=== PATIENT | female | born 1935 | race Caucasian/White ===

== ENCOUNTER 2018-07-20 15:28 | Observation (INO) | payer OTHER ==
[~2018-07-20] VITALS: Ht 152.4 cm; Wt 54.0 kg
[~2018-07-20 15:28] MED LIST: COLACE100 MG PO; DIFLUCAN100 MG PO; DIFLUCAN200 MG PO; ESTRADIOL 1 MG T1 M1 VAG; GABAPENTIN 100100 MG PO; HOME MEDICATION PO; HYDROCORTISONE3011 TOP; LIDOCAINE 22 %/30 GM TOP; MACROBID 100 M100 M2; METFORMIN HCL500 MG PO; MIRALAX17 GM PO; ONDANSETRON HCL4 M2 IV; PERCOCET 5-3251 EACH PO; PHENAZOPYRIDIN200 M2 PO; TENORMIN50 MG PO; TOPROL XL50 MG PO; TRAMADOL 50 MG50 MG PO; VAN500AD IVPB; XANAX 0.5 MG0.5 MG PO
[2018-07-20 15:34] VITALS: BP 172/57
[2018-07-20] MEDS ORDERED: ALENDRONATE SOD70 MG PO (15:38)
[2018-07-20] MEDS ORDERED: SPIRONOLACTONE25 M1 PO (15:38)
[2018-07-20 16:04] LABS: ABSOLUTE BASOPHILS 0.1 thou/uL (0.0-0.2); ABSOLUTE LYMPHOCYTES 1.5 thou/uL (0.8-5.3); ABSOLUTE MONOCYTES 0.8 thou/uL (0.0-1.2); ABSOLUTE NEUTROPHILS 4.5 thou/uL (1.6-8.1); BASOPHILS 0.9 %; HEMATOCRIT 38.4 % (37.0-47.0); HEMOGLOBIN 12.6 gm/dL (12.0-15.0); LYMPHOCYTES 22.1 %; MCH 31.5 pg (26.0-34.0); MCHC 32.7 g/dL (28.0-37.0); MCV 96.4 fL (80.0-100.0); MONOCYTES 11.9 %; MPV 8.9 fl. (7.2-11.1); NUCLEATED RBCS 0 /100WBC; PLATELET COUNT* 261 thou/uL (150-400); POLYS 65.1 %; RBC 3.99 mil/uL (4.20-5.00); RDW-CV 14.6 % (10.5-14.5); WBC 6.9 thou/uL (4.0-11.0)
[2018-07-20 16:12] LABS: ANION GAP 1 mmol/L (7-16); BUN 21 mg/dL (7-18); CALCIUM 8.7 mg/dL (8.5-10.1); CHLORIDE 103 mmol/L (98-107); CO2 30 mmol/L (21-32); GLUCOSE 66 mg/dL (70-99); POTASSIUM 5.7 mmol/L (3.5-5.1); SODIUM 134 mmol/L (136-145)
[2018-07-20 16:23] LABS: ALBUMIN 3.6 g/dL (3.4-5.0); ALKALINE PHOSPHATASE 62 U/L (46-116); LIPASE 88 U/L (73-393); MAGNESIUM 1.8 mg/dL (1.8-2.4); NT-PRO BRAIN NAT PEPTIDE 1408 pg/mL (<300); SGOT 24 U/L (15-37); SGPT 15 U/L (30-65); TOTAL BILIRUBIN 0.3 mg/dL (<0.1-1.0); TOTAL PROTEIN 6.8 g/dL (6.4-8.2); TROPONIN-I LEVEL <0.06 ng/mL (<0.06)
--- NOTE | 2018-07-20 17:09 | NUR ---
MCKENZIE(VIVIAN) NOTIFIED UPON PT RETURN FROM CT 1658. MCKENZIE IN ROOM WITH PT CONNECTING TO MONITOR. PT CONNECTED TO 02
--- NOTE | 2018-07-20 17:10 | NUR ---
CHRISTY SCHMITT ODERED BY US FROM DIETARY
--- NOTE | 2018-07-20 17:15 | NUR ---
ER AT BEDSIDE DISCUSSING PLAN OF CARE WITH FAMILY AND PT.
[2018-07-20 19:26] LABS: BE -3.1 mmol/L (-2 to +3); HCO3 23.1 mmol/L (22.0-26.0); PCO2 45.6 mmHg (35.0-45.0); PO2 102.5 mmHg (75.0-100.0); pH 7.322 (7.340-7.450)
[2018-07-20 19:30] VITALS: BP 129/88
[2018-07-20 19:44] VITALS: BP 149/41
--- NOTE | 2018-07-20 20:19 | NUR ---
REPORT OBTAINED FROM MCKENZIE FROM ER, PT ARRIVED TO UNIT AT APPROX 1905, OBTAINED ADMISSION HX, REPORT GIVEN TO ALFREDITO SPRINGER. PT ORINETED TO ROOM AND STAFF. RESTING COMFORTABLY IN BED.
[2018-07-21] VITALS: BP 133/33
--- NOTE | 2018-07-21 00:53 | NUR ---
PT ARRIVED TO ROOM 223 AT AROUND 1930. ASSESSMENT COMPLETED CHARTED. ABLE TO MAKE NEEDS KNOWN, NO C/O PAIN OR DISCOMFORT. ON 2L O2 NC, BED ALARM ON, UP WITH SB WITH A CANE. CARDIOLOGY CONSULT THIS MORNING AND HAS BEEN NPO SINCE MIDNIGHT
[2018-07-21 04:00] VITALS: BP 165/55
[2018-07-21 05:22] LABS: HEMATOCRIT 34.7 % (37.0-47.0); HEMOGLOBIN 11.4 gm/dL (12.0-15.0); MCHC 32.9 g/dL (28.0-37.0); MCV 97.2 fL (80.0-100.0); RBC 3.57 mil/uL (4.20-5.00); RDW-CV 14.7 % (10.5-14.5); WBC 5.1 thou/uL (4.0-11.0)
[2018-07-21 05:28] LABS: CALCIUM 8.1 mg/dL (8.5-10.1); CREATININE 0.9 mg/dL (0.6-1.3); MAGNESIUM 1.8 mg/dL (1.8-2.4)
[2018-07-21 05:34] LABS: POTASSIUM 4.5 mmol/L (3.5-5.1)
[2018-07-21 09:17] VITALS: BP 165/56
[2018-07-21] MEDS ORDERED: ATENOLOL 50MG T50 M1 PO (09:28)
[2018-07-21 12:00] VITALS: BP 140/70
--- NOTE | 2018-07-21 12:49 | EKG ---
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 : 1935 Requested By: Paul Booker Order Number: [id number] MD: Dale Grove Measurements Intervals [place] Rate: 45 P: 22 VT: 143 QRS: 12 QRSD: 93 T: 46 QT: 470 QTc: 407 Interpretive Statements Sinus bradycardia Abnormal R-wave progression, late transition Minimal ST elevation, lateral leads Compared to ECG 02/24/2015 05:15:52 ST (T wave) deviation now present Sinus rhythm no longer present Electronically Signed On 07-21-2018 12:49:29 CDT by Dale Grove [email or web address] <ELECTRONICALLY SIGNED> By: Dale Grove MD, FACC 07/21/18 1249 1538 1538 Dale Grove MD, FACC /EPI
[2018-07-21] MEDS ORDERED: NORVASC5 MG PO (15:14)
[2018-07-21 15:25] VITALS: BP 148/76
--- NOTE | 2018-07-21 15:59 | NUR ---
ASSUMED CARE OF PT AT 07. MEDICATIONS ADMINISTERED PER NOV. PT A&O X4 CALM AND COOPERATIVE. PT HAS HAD NO C/O PAIN OR DISTRESS. PT VSS AND TRACING SB ON THE MONITOR. PT TO BE DISCHARGED HOME TODAY. AFTER BEING CLEARED BY CARDIOLOGY THIS NURSE CALLED DR BARRAGAN AND OBTAINED VERBAL DISCHARGE ORDERS.
--- NOTE | 2018-07-21 17:44 | NUR ---
PT DISCHARGED HOME WITH DAUGHTER. IV AND ACUTE CARE ASSISTANT REMOVED PRIOR TO DISCHARGE. PT AND DAUGHTER VERBALIZE UNDERSTANDING OF INSTRUCTIONS. ALL PAPERWORK TAKEN BY PT AT TIME OF DISCHARGE. NEW MEDICATIONS CALLED TO [facility].
--- NOTE | 2018-07-23 09:11 | CON ---
[address] [address] CONSULTATION Name: SUAD LANIER Room: [address] M.Mouna#: [id number] Admission: 07/20/18 Attend Phys: Galo العلي MD Discharge: 07/21/18 Date of : 37 Report #: [id number] THIS REPORT FOR: //name// CC: Stella العلي DATE OF SERVICE: 07/21/2018 REQUESTING PHYSICIAN: Galo العلي MD PRIMARY CARE PHYSICIAN: Dr. Stella Michael. REASON FOR CONSULTATION: Bradycardia and malignant hypertension. HISTORY OF PRESENT ILLNESS: The patient is an 82-year-old female who was admitted with weakness and fatigue and was found to be bradycardic with heart rates in the low to mid 40s. This was a sinus mechanism. She had been on atenolol for years for high blood pressure. She was recently in the hospital at [place] and was placed on a diuretic and presented hyperkalemic with a potassium of 5.7. This has since normalized. She overnight had heart rates in the mid 50s to 60s currently. She is currently asymptomatic for dizziness, lightheadedness or chest pain. She does present with an oxygen requirement, increasing shortness of breath thought to be due to diastolic heart failure. She had mild pleural effusions and infiltrates on x-ray. She has no documented history of underlying coronary artery disease. Denies chest pain or pressure. PAST MEDICAL HISTORY: She has a history of hypertension, prior tobacco use, peripheral vascular disease and status post carotid endarterectomy. No history of stroke or TIA. She is not known to be a diabetic. She has no documented history of coronary artery disease or congestive heart failure. She has no history of kidney failure. HOME MEDICATIONS: Included alendronate, alprazolam p.r.n., gabapentin b.i.d. 100 mg, metformin 500 mg p.o. b.i.d., Aldactone 25 mg daily and atenolol 50 mg daily. REVIEW OF SYSTEMS: CENTRAL NERVOUS SYSTEM: No seizures or paralysis. GENERAL: No weight loss or fevers. RESPIRATORY: Positive emphysema. Positive bronchitis. CARDIOVASCULAR: No chest pain. No palpitation, no orthopnea, no PND and no edema. ENDOCRINE: Positive diabetes. GASTROINTESTINAL: [place] [address] CONSULTATION Name: SUAD LANIER Betty Room: [address]#: [id number] Admission: 07/20/18 Attend Phys: Galo العلي MD Discharge: 07/21/18 Date of : 37 Report #: [id number] GENITOURINARY: No dysuria or hematuria. HEMATOLOGIC: No anemia or bleeding disorders. RENAL: No history of kidney failure. PSYCHIATRIC: No depression. Positive anxiety. MUSCULOSKELETAL: Positive arthritis. No connective tissue. SKIN: No rashes. GASTROINTESTINAL: No GI bleeding, hematemesis or melena. PHYSICAL EXAMINATION: VITAL SIGNS: Blood pressure on current therapy is 150s to 160s systolic over 50s, pulse is 57. She is in sinus rhythm, temperature 36.4 and O2 sats 96% on 2 liters. GENERAL: This is a thin elderly female. She is alert and oriented. She is a poor vp medical. Her daughter presented with most of her history. CARDIOVASCULAR: Regular. There is a faint systolic murmur. I cannot hear a rub or gallop. LUNGS: Diminished breath sounds bilaterally. There are no rales. ABDOMEN: Soft and nontender. EXTREMITIES: There is no peripheral edema. SKIN: Warm and dry. LABORATORY DATA: Electrocardiogram demonstrates sinus bradycardia, nonspecific T-wave flattening. There are no T-wave abnormalities. Heart rate was 45. QTc was normal. IMAGING: Chest x-ray revealed moderate increased density in the left base suggesting atelectasis rather than pneumonia. No evidence of CHF. IMPRESSION 1. Malignant hypertension. I discontinued her atenolol and placed her on low dose amlodipine for the current time being. 2. Chronic diastolic heart failure. She may require diuretics intermittently, but I would not use spironolactone, I suspect Lasix 20 mg daily p.r.n. would be helpful. I do not think she will need potassium replacement. 3. Chronic bronchitis. She does not seem to be actively in a chronic obstructive pulmonary disease exacerbation. 4. Bradycardia. She has some degree of mild sick sinus syndrome likely. We will discontinue her atenolol. Her heart rate is stabilized. This can be monitored as an outpatient. <ELECTRONICALLY SIGNED> By: Sean Archer MD, FACC 07/23/18 0911 1150 0222Dale Grove MD, FACC /nt
== END 2018-07-21 17:45 | disposition home or self-care (01) ==
LOC: M.ERS 15:28 → M.TBA-ER 17:32 → M.2W 17:32
PROVIDERS: Emergency Medicine Emergency Medical Services; ADMIT Internal Medicine
DX: I16.1 Hypertensive emergency (principal); R00.1 Bradycardia, unspecified; E87.5 Hyperkalemia; F41.1 Generalized anxiety disorder; I11.0 Hypertensive heart disease with heart failure; I50.32 Chronic diastolic (congestive) heart failure; E11.9 Type 2 diabetes mellitus without complications; J96.22 Acute and chronic respiratory failure with hypercapnia; J44.9 Chronic obstructive pulmonary disease, unspecified; I49.5 Sick sinus syndrome; I73.9 Peripheral vascular disease, unspecified; I43 Cardiomyopathy in diseases classified elsewhere; J42 Unspecified chronic bronchitis; Z87.891 Personal history of nicotine dependence; Z98.890 Other specified postprocedural states

== ENCOUNTER 2020-07-08 22:45 | Observation (INO) | payer OTHER ==
[~2020-07-08] VITALS: Ht 157.5 cm; Wt 46.7 kg
[~2020-07-08 22:45] MED LIST changes: +ALENDRONATE SOD70 MG PO; +ATENOLOL 50MG T50 M1 PO; +NORVASC5 MG PO; +SPIRONOLACTONE25 M1 PO
[2020-07-08 22:46] VITALS: BP 95/60
[2020-07-08 23:37] LABS: ABSOLUTE LYMPHOCYTES 0.8 thou/uL (0.8-5.3); ABSOLUTE MONOCYTES 0.5 thou/uL (0.0-1.2); ABSOLUTE NEUTROPHILS 4.7 thou/uL (1.6-8.1); BASOPHILS 0.4 %; EOSINOPHILS 0.6 %; HEMATOCRIT 33.7 % (37.0-47.0); HEMOGLOBIN 10.9 gm/dL (12.0-15.0); LYMPHOCYTES 13.9 %; MCH 28.6 pg (26.0-34.0); MCHC 32.5 g/dL (28.0-37.0); MCV 88.3 fL (80.0-100.0); MONOCYTES 7.6 %; MPV 7.6 fl. (7.2-11.1); NUCLEATED RBCS 0 /100WBC; PLATELET COUNT* 213 thou/uL (150-400); POLYS 77.5 %; RBC 3.82 mil/uL (4.20-5.00); RDW-CV 14.3 % (10.5-14.5); WBC 6.1 thou/uL (4.0-11.0)
[2020-07-08 23:50] LABS: CALCIUM 9.2 mg/dL (8.5-10.1); CREATININE 0.9 mg/dL (0.6-1.3); POTASSIUM 4.1 mmol/L (3.5-5.1)
[2020-07-08 23:56] LABS: URINE BILIRUBIN NEGATIVE (Negative); URINE BLOOD NEGATIVE (Negative); URINE CLARITY CLEAR; URINE COLOR YELLOW; URINE GLUCOSE-RANDOM NEGATIVE (Negative); URINE KETONES NEGATIVE (Negative); URINE LEUKOCYTES-REFLEX NEGATIVE (Negative); URINE NITRITE-REFLEX NEGATIVE (Negative); URINE PROTEIN NEGATIVE (Negative); URINE UROBILINOGEN 0.2 E.U./dl (0.2-1.0)
[2020-07-08] MEDS ORDERED: ONDANSETRON HCL4 M2 PO (23:56)
[2020-07-08] MEDS ORDERED: RAYOS5 MG PO (23:57)
[2020-07-08] MEDS ORDERED: TRAMADOL 50 MG50 MG PO (23:57)
[2020-07-08] MEDS ORDERED: INDERAL LA120 M1 PO (23:58)
[2020-07-08] MEDS ORDERED: DESYREL150 MG PO (23:58)
[2020-07-08] MEDS ORDERED: PROZAC 10 MG CA10 MG PO (23:59)
[2020-07-08] MEDS ORDERED: PROTONIX40 M2 PO (23:59)
[2020-07-09] LABS: ALBUMIN 3.9 g/dL (3.4-5.0); TOTAL BILIRUBIN 0.4 mg/dL (<0.1-1.0); TOTAL PROTEIN 6.4 g/dL (6.4-8.2)
[2020-07-09] MEDS ORDERED: TYLENOL325 M1 PO
[2020-07-09] MEDS ORDERED: CARAFATE 1 GM TA1 GM PO
[2020-07-09] MEDS ORDERED: STOOL SOFTNER (00:01)
[2020-07-09 02:21] VITALS: BP 138/67
[2020-07-09 03:00] VITALS: BP 140/52
--- NOTE | 2020-07-09 06:38 | NUR ---
PT ADMITTED TO RM 307 @ 0230. aLERT AND ORIENTED. VSS ON RA. ADM HX AND ASSESSMENT DONE. CONSENTS SIGNED BY PATIENT. PT HAS HOME MEDS. INSTRUCTED TO TAKE HOME. PT VOICED THAT ONE OF HER CHILDREN WILL COME GET IT. PT ON BEDREST. REDNESS TO BOTTOM. PICTURES TO BE DOCUMENTED PER ADM PROTOCOL. TYLENOL GIVEN FOR HEADACHE. FALL PRECAUTION IN PLACE. CALL LIGHT WITHIN REACH. WILL CONTINUE TO MONITOR.
[2020-07-09 08:45] VITALS: BP 178/60
--- NOTE | 2020-07-09 15:40 | EKG ---
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: 1935 Requested By: Galo العلي Order Number: [id number] Reading MD: Sean Archer Measurements Intervals [place] Rate: 57 P: 19 DC: 135 QRS: -17 QRSD: 98 T: 37 QT: 427 QTc: 416 Interpretive Statements Sinus rhythm Atrial premature complexes Borderline left axis deviation Compared to ECG 07/20/2018 15:38:30 Atrial premature complex(es) now present Sinus bradycardia no longer present ST (T wave) deviation no longer present Electronically Signed On 07-09-2020 15:39:59 CDT by Sean Archer [email or web address] <ELECTRONICALLY SIGNED> By: Sean Archer MD, FACC 07/09/20 1539 2256 225 Sean Archer MD, FACC /EPI
[2020-07-09 16:00] VITALS: BP 198/85
--- NOTE | 2020-07-09 16:00 | NUR ---
SPOKE WITH PTS DAUGHTER,CRESENCIO ON [phone]. SHE SAID MOTHER HAD BEEN UNDER THE CARE OF [facility] AT HOME. HER SON,KELLEN, LIVES WITH HER. HE IS IN RM 214 HERE, AFTER AN VT LAST NIGHT. HE IS USUALLY WITH HER IN THE EVENINGS AND NIGHT. PTS NIECE TAKES CARE OF HER ON THE DAYS SHE IS NOT IN CLASS. CRESENCIO IS WITH HER THE OTHER DAYS. SHE SAID THEY ARE FIGURING OUT A SCHEDULE FOR EVES AND NIGHTS UNTIL KELLEN GETS BETTER. CRESENCIO SAID THEY FIRED [facility]. THERE WERE TOO MEDICATION MISTAKES,NO EXPLANATIONS AND NOT THOROUGH. THEY WULD LIKE TO USE [facility]. REFERRAL FAXED TO [facility] [phone] AND NOTE FOR THEM TO SEE PT.TOMORROW. CM DISCUSSED WITH PT., WELL. CM TO CALL [facility] IN [phone].
--- NOTE | 2020-07-09 17:39 | NUR ---
PT LYING IN BED AT TIME OF ASSESMENT. SHE IS AO X4 WITH TREMOR TO FACE. SHE HAS STRESS INCONTINENCE AND HAS A PURE WICK IN PLACE FOR URINATION. PT BP HAS STEADILY GONE UP TODAY AND PT IS EXPERIENCING A HEADACHE FOR WHICH TYLENOL WAS GIVEN. HOME MEDS STARTED. DAUGHTER SPOKE WITH CM REQUESTING THAT [facility] BE CONTACTED FOR NEW SERVICE. DAUGHTER IS CONCERNED WITH THE AMOUNT OF MEDICATION SHE IS TAKING FROM HOSPICE AND STATES SINCE SHE STARTED TAKING [facility]A MARYURI SHE HAS HAD SOME ISSUES OF FALLING AND WEAKNESS. SHE STATES THAT PT TAKES PRN MEDS SCHEDULED AND SHE IS WORRIED ABOUT HOW MANY ATIVAN MOTHER IS TAKING PRESENTLY. PT HAS AREA OF REDNESS ON COCCYX TO WHICH A FOAM DRESSING WAS PLACED FOR COMFORT.
[2020-07-09 19:50] VITALS: BP 172/81
--- NOTE | 2020-07-10 04:09 | NUR ---
ASSUMED PT'S CARE THIS PM SHIFT. PT ALERT AND ORIENTED. MEDS GIVEN PER EMAR. PT SLEPT WELL THIS SHIFT. Q2 TURN. REQUIRED MANY BLANKETS. ROOM TEMP TURNED UP TO HIGHEST TEMP. PUREWICK FOR VOIDING. FALL PRECAUTION IN PLACE. CALL LIGHT WITHIN REACH. HOURLY ROUNDINGS MADE. WILL CONTINUE TO MONITOR.
[2020-07-10] MEDS ORDERED: PROPRANOLOL 1010 MG PO (08:29)
[2020-07-10 13:44] VITALS: BP 189/70
[2020-07-10 14:14] VITALS: BP 189/70
--- NOTE | 2020-07-10 15:21 | NUR ---
CM RECIEVED A CALL FROM [facility] INTAKE TO INFORM THAT THEY ARE 'UNABLE TO ACCPET THE PT WE ARE CURRENTLY AT CAPACITY'. CM INFORMED THE PT'S DTR OF THIS INFO AND SHE REQUEST HSOPICE WITH ANOTHER COMPANY AND HAS NO PREFERENCE. CM FAXED REFERRAL TO [facility] AND THEY HAVE ACCEPTED THE PT. [facility] RN SPOKE TO PT'S DTR AND HAVE ARRANGED TO MEET HER AT HER HOME TO SIGN-ON WITH HOSPICE. D/C ORDERS FAXED TO [facility]. PT'S DTR INFORMS THAT SHE WILL PROVIDE TRANSPORT HOME FOR THE PT. CM WILL REMAIN AVAILABLE TO ASSIST AND FOLLOW NEEDED. [facility] PHONE: [phone] FAX: [phone]
--- NOTE | 2020-07-10 16:14 | NUR ---
PT IN BED AT TIME OF ASSESSMENT, AO X4 WITH TREMOR TO FACE. BP ELEVATED AND MORNING MEDS PASSED. PT DENIES PAIN AT THIS TIME AND STATES SHE SLEPT GOOD. LUNGS CLEAR BUT DIMINISHED, PURE WICK IN PLACE WITH CLEAR YELLOW URINE IN SUCITON CONTAINER. ORDERS FOR DISCHARGE RECEIVED, CM COORDINATED NEW HOSPICE PROVIDER. DAUGHTER HERE TO ASSISTANT COUNSEL PT. IV REMOVED INTACT AND PT DRESSED AND TAKEN TO PRIVATE VEHICLE BY WHEELCHAIR, DISCHARGE ORDERS DISCUSSED WITH PT AND DAUGHTER WITH NO QUESTIONS.
== END 2020-07-10 16:15 | disposition hospice, home (50) ==
LOC: M.ERS 22:45 → M.TBA-ER 07-09 00:38 → M.3W 07-09 00:38 → M.ERS 07-09 02:21 → M.3W 07-09 02:30
PROVIDERS: Personal Emergency Response Attendant; ADMIT Internal Medicine; ATTEND Internal Medicine
DX: F44.4 Conversion disorder with motor symptom or deficit (principal); R53.81 Other malaise; F41.1 Generalized anxiety disorder; M81.0 Age-related osteoporosis without current pathological fracture; I10 Essential (primary) hypertension; R30.0 Dysuria; E11.9 Type 2 diabetes mellitus without complications; S32.9XXD Fracture of unspecified parts of lumbosacral spine and pelvis, subsequent encounter for fracture with routine healing; W19.XXXD Unspecified fall, subsequent encounter; Z79.84 Long term (current) use of oral hypoglycemic drugs; Z79.899 Other long term (current) drug therapy; Z87.891 Personal history of nicotine dependence; Z20.828 Contact with and (suspected) exposure to other viral communicable diseases